=== PATIENT | female | born 2000 ===

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

== ENCOUNTER 2018-04-13 23:04 | Emergency (ER) | payer MEDICAID ==
[2018-04-13 23:31] VITALS: BP 100/66
--- NOTE | 2018-04-14 00:05 | C.PDOC ---
History Of Present Illness 18 year old female presents to the ER with a complaint of a fever, nonproductive cough, sore throat, and chest wall pain for the past 4 days. She has been taking motrin for fever with relief but fever recurs, last dose of motrin was [employer]. Denies SOB, sick contact, or recent travel. Time Seen by Provider: 04/13/18 23:34 Chief Complaint (Nursing): Fever History Per: Patient History/Exam Limitations: no limitations Onset/Duration Of Symptoms: Days Current Symptoms Are (Timing): Still Present Location Of Pain: Throat Associated Symptoms: Fever, Sore Throat, Cough, Other (Chest wall pain). denies: Sputum Ear Symptoms: Bilateral: None Recent travel outside of the [place]: No Past Medical History Reviewed: Historical Data, Nursing Documentation, Vital Signs Vital Signs: Last Vital Signs Temp 101.5 F H 04/13/18 23:27 Pulse 95 H 04/13/18 23:27 Resp 20 04/13/18 23:27 BP 100/66 04/13/18 23:27 Pulse Ox 97 04/13/18 23:27 Family History: States: Unknown Family Hx - Social History Hx Alcohol Use: No Hx Substance Use: No - Immunization History Hx Tetanus Toxoid Vaccination: No Hx Influenza Vaccination: No Hx Pneumococcal Vaccination: No Review Of Systems Constitutional: Positive for: Fever ENT: Positive for: Throat Pain Respiratory: Positive for: Cough. Negative for: Sputum Genitourinary: Negative for: Dysuria, Hematuria Musculoskeletal: Positive for: Other (Chest wall pain) Physical Exam - Physical Exam Appears: Non-toxic Skin: Normal Color, Warm, Dry Head: Atraumatic, Normacephalic Eye(s): bilateral: Normal Inspection Ear(s): Bilateral: Normal Nose: Normal Oral Mucosa: Moist Throat: Normal, No Erythema, No Exudate Neck: Normal, Supple Chest: Symmetrical, No Tenderness Cardiovascular: Rhythm Regular Respiratory: Normal Breath Sounds, No Rales, No Rhonchi, No Wheezing Gastrointestinal/Abdominal: Soft, No Tenderness Back: No CVA Tenderness Neurological/Psych: Oriented x3, Normal Speech ED Course And Treatment O2 Sat by Pulse Oximetry: 97 (Room air) Pulse Ox Interpretation: Normal - Radiology CXR: Interpreted by Me, Viewed By Me CXR Interpretation: Yes: No Acute Disease. No: Infiltrates Medical Decision Making Medical Decision Making: CXR ordered, results were negative. Tessalon and tylenol administered. Patient is resting comfortably in the ER in no acute distress, afebrile, vitals are stable, will discharge home with Rx and instructions to follow up with PMD or return if symptoms worsen. Disposition Counseled Patient/Family Regarding: Diagnosis, Need For Followup, Rx Given - Disposition Disposition: HOME/ ROUTINE Disposition Time: 00:23 Condition: GOOD Additional Instructions: You have viral upper respiratory infection. Take Tylenol or Motrin alternating every 4-6 hours for Fever 100.4F or higher. Rest and drink plenty of fluids. May use cool mist humidifier or vaporizer in room. Try taking over the counter antihistamine (Claritin, Nicole, Zyrtec), Decongestant or Cough medicine (Mucinex) as needed every 6-8 hours. Follow up with your primary medical doctor or clinic in 1 week for further evaluation. Tiene eusebia infeccin viral de las vas respiratorias superiores. [place] Tylenol o Motrin alternando cada 4-6 horas para Fever 100.4F o superior. Descansa y nadrew muchos lquidos. Puede usar humidificador de vapor fro o vaporizador en la habitacin. Trate de nomi el medicamento antihistamnico (Claritin, Nicole, Zyrtec), descongestivo o medicina para la tos (Mucinex) segn sea necesario cada 6-8 horas. Wolfgang un seguimiento con boyd mdico de cabecera o clnica en 1 semana para eusebia evaluacin adicional. Prescriptions: Guaifenesin/Dextromethorphan [Delsym Cough+Chest Cngst Dm Lq] 10 ml PO Q8 #4 oz Instructions: Upper Respiratory Infection (ED) Forms: [employer] (Albanian) Print Language: MALIAN - POA Present On Arrival: None - Clinical Impression Clinical Impression: Upper respiratory infection - PA / ENVIRONMENTAL SCIENCE PROFESSOR / Resident Statement MD/DO has reviewed & agrees with the documentation as recorded. - Scribe Statement The provider has reviewed the documentation as recorded by the Scribe Rolan Woodson All medical record entries made by the Scribe were at my direction and personally dictated by me. I have reviewed the chart and agree that the record accurately reflects my personal performance of the history, physical exam, medical decision making, and the department course for this patient. I have also personally directed, reviewed, and agree with the discharge instructions and disposition.
[2018-04-14 00:35] VITALS: PULSE 89; RESP 16; TEMP 98.1; O2SAT 99
--- NOTE | 2018-04-14 17:54 | RAD ---
Date of service: 04/14/2018 HISTORY: cough, fever COMPARISON: No prior. TECHNIQUE: Chest PA and lateral FINDINGS: LUNGS: Right middle lobe consolidation. Likely pneumonia. PLEURA: No significant pleural effusion identified. No pneumothorax apparent. CARDIOVASCULAR: No aortic atherosclerotic calcification present. Normal cardiac size. No pulmonary vascular congestion. OSSEOUS STRUCTURES: No significant abnormalities. VISUALIZED UPPER ABDOMEN: Normal. OTHER FINDINGS: None. IMPRESSION: Right middle lobe consolidation, likely pneumonia.
== END 2018-04-14 00:34 | disposition home or self-care (01) ==
LOC: C.ER 23:04
DX: J06.9 Acute upper respiratory infection, unspecified (principal)

== ENCOUNTER 2018-04-17 16:53 | Inpatient (IN) | payer MEDICAID ==
[2018-04-17] MEDS ORDERED: Albuterol-Ipratrop 3 mg / 0.5 (3 ml) UD INH STA ×2 (17:37→18:20)
[2018-04-17] MEDS ORDERED: Albuterol-Ipratrop 3 mg / 0.5 (3 ml) UD ONE ×2 (17:50→18:27)
--- NOTE | 2018-04-17 17:57 | RAD ---
HISTORY: cough, RML Pna noted 04/13 COMPARISON: Chest x-ray performed 04/14/18 TECHNIQUE: Chest PA and lateral FINDINGS: LUNGS: Right middle lobe consolidation consistent with pneumonia. Please note that chest x-ray has limited sensitivity for the detection of pulmonary masses. PLEURA: No significant pleural effusion identified. No definite pneumothorax . CARDIOVASCULAR: The cardiomediastinal silhouette appears within normal limits of size. No atherosclerotic calcification present. OSSEOUS STRUCTURES: No acute osseous abnormality identified. VISUALIZED UPPER ABDOMEN: Unremarkable. OTHER FINDINGS: None. IMPRESSION: Right middle lobe consolidation consistent with pneumonia; no significant interval change since 04/14/18.
[2018-04-17] MEDS ORDERED: cefTRIAXone IV 1 gm in Dextros 50 ML IV ONE (18:08)
[2018-04-17] MEDS ORDERED: Sodium Chloride 0.9% 1,000 ML IV ONE (18:09)
[2018-04-17 18:16] LABS: BASO % 0.2 % (0.0-2.0); EOS # 0.3 K/uL (0.0-0.7); HEMOGLOBIN 12.9 g/dL (11.0-16.0); LYMPH # 2.6 K/uL (1.0-4.3); LYMPH % 24.6 % (20.0-40.0); MEAN PLATELET VOLUME 7.8 fL (7.2-11.7); MONO # 0.9 K/uL (0.0-0.8); MONO % 8.1 % (0.0-10.0); NEUT # 6.9 K/uL (1.8-7.0); NEUT % 64.1 % (50.0-75.0); NRBC % 0.1 % (0.0-2.0); RBC 4.32 Mil/uL (3.80-5.20); RED CELL DISTRIBUTION WIDTH 13.1 % (11.5-14.5); WHITE BLOOD COUNT 10.7 K/uL (4.8-10.8)
[2018-04-17] MEDS ORDERED: cefTRIAXone 1 gm 1 GM/100 ML BAG IVPB ONE (18:17)
[2018-04-17 18:18] LABS: MEAN CELL VOLUME 88.1 fL (81.0-99.0)
[2018-04-17] MEDS ORDERED: Sodium Chloride 0.9% 0 ML ONE (18:19)
[2018-04-17 18:27] LABS: ALB/GLOB RATIO 1.1 (1.0-2.1); ALBUMIN 3.8 g/dL (3.5-5.0); ALT/SGPT 49 U/L (9-52); AST/SGOT 51 U/L (14-36); BLOOD UREA NITROGEN 7 mg/dL (7-17); CALCIUM 8.4 mg/dl (8.6-10.4); GFR NON-AFRICAN AMERICAN > 60
--- NOTE | 2018-04-17 18:30 | C.PDOC ---
History Of Present Illness 18 year old female presents to the ED for evaluation of persistent cough with subjective fevers for 3-4 days. Patient reports she is not able to catch her breath, was seen in the ED 04/15, treated for similar symptoms and prescribed an antibiotic. Admits to starting the antibiotics today. Denies having a nebulizer at home. Denies sick contact, decrease in PO intake, nausea, vomiting, chills, abdominal pain, diarrhea, and any other associated symptoms. Time Seen by Provider: 04/17/18 17:31 Chief Complaint (Nursing): Cough, Cold, Congestion History Per: Patient History/Exam Limitations: no limitations Onset/Duration Of Symptoms: Days Current Symptoms Are (Timing): Still Present Past Medical History Reviewed: Historical Data, Nursing Documentation, Vital Signs Vital Signs: Last Vital Signs Temp 100.6 F H 04/17/18 17:21 Pulse 85 04/17/18 17:21 Resp 20 04/17/18 17:21 BP 101/67 04/17/18 17:21 Pulse Ox 99 04/17/18 17:21 Family History: States: Unknown Family Hx - Social History Hx Alcohol Use: No Hx Substance Use: No - Immunization History Hx Tetanus Toxoid Vaccination: No Hx Influenza Vaccination: No Hx Pneumococcal Vaccination: No Review Of Systems Except As Marked, All Systems Reviewed And Found Negative. Constitutional: Positive for: Fever (subjective.). Negative for: Chills Respiratory: Positive for: Cough, Shortness of Breath Gastrointestinal: Negative for: Nausea, Vomiting, Abdominal Pain, Diarrhea Physical Exam - Physical Exam Appears: Non-toxic, Other (mild distress.) Skin: Normal Color, Warm, Dry Head: Atraumatic, Normacephalic Eye(s): bilateral: PERRL Ear(s): Bilateral: Normal Nose: Normal, No Discharge Oral Mucosa: Moist Throat: Normal, No Erythema, No Exudate Neck: Normal ROM, Supple Chest: Symmetrical, No Deformity Cardiovascular: Rhythm Regular, No Murmur Respiratory: Rales (increased rales and egophony on the right upper/lower lung area.) ED Course And Treatment - Laboratory Results Result Diagrams: 04/17/18 18:01 04/17/18 18:01 Lab Interpretation: Normal (flu neg) O2 Sat by Pulse Oximetry: 99 (RA) Pulse Ox Interpretation: Normal - Radiology CXR: Interpreted by Me CXR Interpretation: Yes: Other (+ RML and new RLL PNA evolved c/w 04/15/18) Reevaluation Time: 18:31 Reassessment Condition: Improved - Physician Consult Information Outcome Of Conversation: 1814: d/w Dr. Pooja Hwang, Medicine, ok to admit. Medical Decision Making Medical Decision Making: Plan: -Blood sent. -CXR. Duoneb. -Pepcid. -Tamifle cap. -Zithromax. -Blood culture. -Influenza A B. Progress/Update: CXR shows right middle lobe infiltrates RML PNA d/x 04/15 04/16 call back 04/17 w dx RML PNA and Rx Azithromycin called in 04/17: pt took first dose Azithro 500 PO ED eval with evolving RML and RLL PNA without leukocytosis, suspect influenza vs viral pna as no WBC genenerated with worstening PNA empiric coverage w Rocephin/Azithro/Tamiflu Resp Isolation prednisone/Nebs Disposition Doctor Will See Patient In The: Hospital Counseled Patient/Family Regarding: Studies Performed, Diagnosis - Disposition Disposition: HOSPITALIZED Disposition Time: 18:35 Condition: GOOD - Clinical Impression Clinical Impression: Pneumonia - Scribe Statement The provider has reviewed the documentation as recorded by the Scribe (Alessandra Galeano) Provider Attestation: All medical record entries made by the Scribe were at my direction and p ersonally dictated by me. I have reviewed the chart and agree that the record accurately reflects my personal performance of the history, physical exam, medical decision making, and the department course for this patient. I have also personally directed, reviewed, and agree with the discharge instructions and disposition.
[2018-04-17] MEDS ORDERED: MethylPREDNISolone 40 mg Vial ONE (22:14)
[2018-04-17] MEDS: MethylPREDNISolone 40 mg Vial IVP SCH (22:22)
[2018-04-18] MEDS ORDERED: Albuterol-Ipratrop 3 mg / 0.5 (3 ml) UD ONE ×2 (02:50→09:08)
[2018-04-18] MEDS: Albuterol-Ipratrop 3 mg / 0.5 (3 ml) UD INH SCH ×2 (03:17→09:19)
[2018-04-18] MEDS ORDERED: MethylPREDNISolone 40 mg Vial ONE (05:37)
[2018-04-18] MEDS: MethylPREDNISolone 40 mg Vial IVP SCH ×2 (05:48→22:12)
[2018-04-18] MEDS: cefTRIAXone IV 1 gm in Dextros 50 ML IVPB SCH (10:00)
[2018-04-18] MEDS: Azithromycin 500 MG in Sodium Chloride 0.9% 250 ML IVPB SCH (10:30)
--- NOTE | 2018-04-18 10:43 | CP.PCM.CON ---
History of Present Illness - History of Present Illness History of Present Illness: CHART REVIEWED, PT SEEN AND EXAMINED 18 YO HISP FEMALE WITH NO SIG PMH ADM WITH INCREASED MOD-SEVERE COUGH X 1 WK, NO SPUTUM. +FEVER +CHILLS., MILD SOB., NO HX ASTHMA. NO HX PNA. +MOTHER SICK AT HOME WITH FEVER AND COUGH ALSO 2 WKS AGO, NOW BETTER. PT SEEN IN ER LAST WK., RX PO AB WITH NO RELIEF. Review of Systems - Constitutional Constitutional: Fever, Weakness - EENT Eyes: absent: Change in Vision Nose/Mouth/Throat: absent: Nasal Congestion - Cardiovascular Cardiovascular: absent: Chest Pain - Respiratory Respiratory: Cough, Dyspnea. absent: Wheezing, Excessive Mucous Production - Gastrointestinal Gastrointestinal: Diarrhea, Nausea, Vomiting - Genitourinary Genitourinary: absent: Difficulty Urinating - Reproductive: Female Additional comments: LMP; LAST WK. - Musculoskeletal Musculoskeletal: absent: Myalgias - Integumentary Integumentary: absent: Swelling - Neurological Neurological: absent: Confusion, Focal Weakness - Psychiatric Psychiatric: absent: Anxiety - Endocrine Endocrine: absent: Change in Body Appearance - Hematologic/Lymphatic Hematologic: absent: Easy Bleeding Past Patient History - Past Medical History & Family History Past Medical History?: No Past Family History: Reviewed and not pertinent - Past Social History Smoking Status: Never Smoked Chewing Tobacco Use: No Cigar Use: No Alcohol: None Drugs: Denies - CARDIAC Hx Cardiac Disorders: No - PULMONARY Hx Respiratory Disorders: No - NEUROLOGICAL Hx Neurological Disorder: No - HEENT Hx HEENT Problems: No - RENAL Hx Chronic Kidney Disease: No - ENDOCRINE/METABOLIC Hx Endocrine Disorders: No - HEMATOLOGICAL/ONCOLOGICAL Hx Blood Disorders: No - INTEGUMENTARY Hx Dermatological Problems: No - MUSCULOSKELETAL/RHEUMATOLOGICAL Hx Musculoskeletal Disorders: No - GASTROINTESTINAL Hx Gastrointestinal Disorders: No - GENITOURINARY/GYNECOLOGICAL Hx Genitourinary Disorders: No - PSYCHIATRIC Hx Psychophysiologic Disorder: No Hx Substance Use: No - SURGICAL HISTORY Hx Surgeries: No - ANESTHESIA Hx Anesthesia: No Meds Allergies/Adverse Reactions: Allergies Allergy/AdvReac Type Severity Reaction Status Date / Time No Known Allergies Allergy Verified 04/17/18 17:24 - Medications Medications: Current Medications Albuterol/Ipratropium (Duoneb 3 Mg/0.5 Mg (3 Ml) Ud) 3 ml INH RQ6 BRIAN Last Admin: 04/18/18 09:19 Dose: 3 ml Ceftriaxone Sodium (Rocephin Iv 1 Gm Duplex) 50 mls @ 100 mls/hr IVPB DAILY BRIAN; Protocol Last Admin: 04/18/18 10:00 Dose: 100 mls/hr Azithromycin 500 mg/ Sodium (Chloride) 250 mls @ 250 mls/hr IVPB DAILY BRIAN; Protocol Methylprednisolone (Solu-Medrol) 40 mg IVP Q8 BRIAN Last Admin: 04/18/18 05:48 Dose: 40 mg Oseltamivir Phosphate (Tamiflu Cap) 75 mg PO BID BRIAN; Protocol Stop: 04/22/18 20:23 Last Admin: 04/18/18 10:17 Dose: 75 mg Physical Exam - Constitutional Appears: No Acute Distress - Head Exam Head Exam: ATRAUMATIC, NORMOCEPHALIC - Eye Exam Eye Exam: EOMI, Normal appearance - ENT Exam ENT Exam: Mucous Membranes Moist - Neck Exam Neck exam: Positive for: Normal Inspection - Respiratory Exam Respiratory Exam: Rhonchi. absent: Wheezes, Respiratory Distress - Cardiovascular Exam Cardiovascular Exam: RRR, +S1, +S2 - GI/Abdominal Exam GI & Abdominal Exam: Soft. absent: Tenderness - Rectal Exam Rectal Exam: Deferred - Extremities Exam Extremities exam: Negative for: calf tenderness, pedal edema - Back Exam Back exam: absent: CVA tenderness (L), CVA tenderness (R) - Neurological Exam Neurological exam: Alert, CN II-XII Intact, Oriented x3 - Psychiatric Exam Psychiatric exam: Normal Mood Results - Vital Signs Recent Vital Signs: Last Vital Signs Temp 97.9 F 04/18/18 06:54 Pulse 76 04/18/18 06:54 Resp 20 04/18/18 06:54 BP 118/66 04/18/18 06:54 Pulse Ox 98 04/18/18 06:54 - Labs Result Diagrams: 04/17/18 18:01 04/17/18 18:01 Labs: Laboratory Results - last 24 hr 04/17/18 04/17/18 04/17/18 18:01 18:01 18:01 WBC 10.7 RBC 4.32 Hgb 12.9 Hct 38.0 MCV 88.1 D MCH 30.0 MCHC 34.0 RDW 13.1 Plt Count 309 MPV 7.8 Neut % (Auto) 64.1 Lymph % (Auto) 24.6 [place] % (Auto) 8.1 Eos % (Auto) 3.0 Baso % (Auto) 0.2 Neut # (Auto) 6.9 Lymph # (Auto) 2.6 [place] # (Auto) 0.9 H Eos # (Auto) 0.3 Baso # (Auto) 0.0 Sodium 136 Potassium 3.9 Chloride 100 Carbon Dioxide 28 Anion Gap 12 BUN 7 Creatinine 0.6 L Est GFR ( Amer) > 60 Est GFR (Non-Af Amer) > 60 Random Glucose 109 H Calcium 8.4 L Total Bilirubin 0.4 AST 51 H D ALT 49 Alkaline Phosphatase 39 Total Protein 7.2 Albumin 3.8 Globulin 3.4 Albumin/Globulin Ratio 1.1 Influenza Typ A,B (EIA) Negative for flu a/b Assessment & Plan (1) Pneumonia Status: Acute - Assessment and Plan (Free Text) Assessment: 18 YO FEMALE WITH NO SIG PMH ADM WITH +RML PNA ON CXR., CXR REVIEWED. CONT EMPIRIC AB PENDING CULT. R/O FLU. FOR ID EVAL. CONT PULM TOILET,, NEB BD., MONITOR O2 SAT. DVT PROPHYLAXIS . DISCUSSED WITH STAFF AT LENGTH.
--- NOTE | 2018-04-18 11:54 | CP.PCM.CON ---
History of Present Illness - History of Present Illness History of Present Illness: HPI: 18 year old female presents to the ED for evaluation of persistent cough with subjective fevers for 3-4 days. Patient reports she is not able to catch her breath, was seen in the ED 04/15, treated for similar symptoms and prescribed an antibiotic. Admits to starting the antibiotics today. Denies having a nebulizer at home. DENIES decrease in PO intake, nausea, vomiting, chills, abdominal pain, diarrhea, and any other associated symptoms. C/O DRY COUGH.DENIES SORETHROAT. DENIES HEADACHE/OR SINUS PROBLEMS. DENIES ANY RECENT TRAVEL.STATES HER MOTHER WAS RECENTLY WITH [employer] AND PRESENTLY DOING BETTER. DENIES EXPOSURE TO PETS. CXR ON ADMISSION SHOWS [facility] PNEUMONIA. PT STARTED ON IV CEFOTRIAXONE/ZITHROMAX/AND TAMIFLU NOTED. iNITIAL RAPID INFLUENZA ANTIGEN REPORTED NEGATIVE. INFECTIOUS DISEASE CONSULTATION REQUESTED BY PMD FOR RIGHT LOWER LOBE PNEUMONIA AND DRY COUGH. PMH: -ASTHMA. Family History: States: Unknown Family Hx - Social History Hx Alcohol Use: No Hx Substance Use: No - Immunization History Hx Tetanus Toxoid Vaccination: No Hx Influenza Vaccination: No Hx Pneumococcal Vaccination: No ALLERGY: NKDA Review of Systems - Constitutional Constitutional: Chills, Fever. absent: Night Sweats - EENT Eyes: absent: Change in Vision Ears: absent: Ear Discharge, Ear Pain Nose/Mouth/Throat: absent: Post Nasal Drip, Hoarsness, Mouth Lesions - Cardiovascular Cardiovascular: absent: Chest Pain, Leg Edema - Respiratory Respiratory: Cough (DRY) - Gastrointestinal Gastrointestinal: absent: Abdominal Pain, Change in Bowel Habits, Diarrhea, V omiting - Genitourinary Genitourinary: absent: Dysuria - Reproductive: Female Reproductive:Female: Normal Menses - Menstruation Menstruation: Normal Menses - Neurological Neurological: absent: Headaches, Weakness - Hematologic/Lymphatic Hematologic: As Per HPI. absent: Easy Bruising, Lymphadenopathy Past Patient History - Past Medical History & Family History Past Medical History?: No Past Family History: Reviewed and not pertinent - Past Social History Smoking Status: Never Smoked Chewing Tobacco Use: No Cigar Use: No Alcohol: None Drugs: Denies - CARDIAC Hx Cardiac Disorders: No - PULMONARY Hx Respiratory Disorders: No - NEUROLOGICAL Hx Neurological Disorder: No - HEENT Hx HEENT Problems: No - RENAL Hx Chronic Kidney Disease: No - ENDOCRINE/METABOLIC Hx Endocrine Disorders: No - HEMATOLOGICAL/ONCOLOGICAL Hx Blood Disorders: No - INTEGUMENTARY Hx Dermatological Problems: No - MUSCULOSKELETAL/RHEUMATOLOGICAL Hx Musculoskeletal Disorders: No - GASTROINTESTINAL Hx Gastrointestinal Disorders: No - GENITOURINARY/GYNECOLOGICAL Hx Genitourinary Disorders: No - PSYCHIATRIC Hx Psychophysiologic Disorder: No Hx Substance Use: No - SURGICAL HISTORY Hx Surgeries: No - ANESTHESIA Hx Anesthesia: No Meds Allergies/Adverse Reactions: Allergies Allergy/AdvReac Type Severity Reaction Status Date / Time shellfish Allergy NAUSEA Uncoded 04/18/18 23:24 - Medications Medications: Current Medications Albuterol/Ipratropium (Duoneb 3 Mg/0.5 Mg (3 Ml) Ud) 3 ml INH RQ6 BRIAN Last Admin: 04/18/18 09:19 Dose: 3 ml Ceftriaxone Sodium (Rocephin Iv 1 Gm Duplex) 50 mls @ 100 mls/hr IVPB DAILY BRIAN; Protocol Last Admin: 04/18/18 10:00 Dose: 100 mls/hr Azithromycin 500 mg/ Sodium (Chloride) 250 mls @ 250 mls/hr IVPB DAILY BRIAN; Protocol Last Admin: 04/18/18 10:30 Dose: 250 mls/hr Methylprednisolone (Solu-Medrol) 40 mg IVP Q12 BRIAN Oseltamivir Phosphate (Tamiflu Cap) 75 mg PO BID BRIAN; Protocol Stop: 04/22/18 20:23 Last Admin: 04/18/18 10:17 Dose: 75 mg Physical Exam - Constitutional Appears: No Acute Distress - Head Exam Head Exam: NORMAL INSPECTION - Eye Exam Eye Exam: EOMI, PERRL - ENT Exam ENT Exam: Normal Oropharynx - Neck Exam Neck exam: Positive for: Normal Inspection - Respiratory Exam Respiratory Exam: Rhonchi (RT SIDE), Wheezes - Cardiovascular Exam Cardiovascular Exam: REGULAR RHYTHM, +S1, +S2 - GI/Abdominal Exam GI & Abdominal Exam: Soft. absent: Organomegaly, Tenderness - Extremities Exam Extremities exam: Positive for: normal capillary refill, pedal pulses present. Negative for: calf tenderness, pedal edema - Neurological Exam Neurological exam: Alert, CN II-XII Intact, Normal Gait, Oriented x3, Reflexes Normal - Psychiatric Exam Psychiatric exam: Normal Mood - Skin Skin Exam: Normal Color, Warm Results - Vital Signs Recent Vital Signs: Last Vital Signs Temp 97.9 F 04/18/18 06:54 Pulse 76 04/18/18 06:54 Resp 20 04/18/18 06:54 BP 118/66 04/18/18 06:54 Pulse Ox 98 04/18/18 06:54 - Labs Result Diagrams: 04/17/18 18:01 04/17/18 18:01 Labs: Laboratory Results - last 24 hr 04/17/18 04/17/18 04/17/18 18:01 18:01 18:01 WBC 10.7 RBC 4.32 Hgb 12.9 Hct 38.0 MCV 88.1 D MCH 30.0 MCHC 34.0 RDW 13.1 Plt Count 309 MPV 7.8 Neut % (Auto) 64.1 Lymph % (Auto) 24.6 Adams % (Auto) 8.1 Eos % (Auto) 3.0 Baso % (Auto) 0.2 Neut # (Auto) 6.9 Lymph # (Auto) 2.6 Adams # (Auto) 0.9 H Eos # (Auto) 0.3 Baso # (Auto) 0.0 Sodium 136 Potassium 3.9 Chloride 100 Carbon Dioxide 28 Anion Gap 12 BUN 7 Creatinine 0.6 L Est GFR ( Amer) > 60 Est GFR (Non-Af Amer) > 60 Random Glucose 109 H Calcium 8.4 L Total Bilirubin 0.4 AST 51 H D ALT 49 Alkaline Phosphatase 39 Total Protein 7.2 Albumin 3.8 Globulin 3.4 Albumin/Globulin Ratio 1.1 Influenza Typ A,B (EIA) Negative for flu a/b - Imaging and Cardiology Chest x-ray Status: Report reviewed by me (RML INFILTRATE.) Assessment & Plan (1) CAP (community acquired pneumonia) Assessment and Plan: CXR; [facility] PNEUMONIA. nO CHANGE FROM PREVIOUS ONE. CONTINUE IV ABX ORDERED. IV ROCEPHIN 1 G EVERY 24 HOURLY. 04/17/18 IV zITHROMAX 500 MG EVERY 24 HOURLY 04/17/18 tAMIFLU 75 MG BY MOUTH TWICE A DAY FOR 5 DAYS. 04/17/18 DROPLET PRECAUTIONS FOR NOW. ( POSSIBLE INFLUENZA/ MYCOPLASMA ) AWAIT SEROLOGY AND ATYPICAL TITERS.-ORDERED. Status: Acute (2) Dyspnea Assessment and Plan: PATIENT SEEN BY PULMONARY DR FRANCO PULMONARY TOILET. PATIENT STARTED ON STEROIDS 40 MG EVERY 8 HOURLY PER PULMONARY. Status: Acute (3) Fever and chills Assessment and Plan: FOLLOW-UP BLOOD CULTURES. Status: Acute
[2018-04-18 16:01] LABS: LEGIONELLA AG URINE NEGATIVE (NEGATIVE)
[2018-04-18 20:27] LABS: MYCOPLASMA PNEUMONIAE IGM POSITIVE (NEGATIVE)
--- NOTE | 2018-04-18 22:12 | CP.PCM.HP ---
Past Patient History - Past Medical History & Family History Past Medical History?: No - Past Social History Smoking Status: Never Smoked - CARDIAC Hx Cardiac Disorders: No - PULMONARY Hx Respiratory Disorders: No - NEUROLOGICAL Hx Neurological Disorder: No - HEENT Hx HEENT Problems: No - RENAL Hx Chronic Kidney Disease: No - ENDOCRINE/METABOLIC Hx Endocrine Disorders: No - HEMATOLOGICAL/ONCOLOGICAL Hx Blood Disorders: No - INTEGUMENTARY Hx Dermatological Problems: No - MUSCULOSKELETAL/RHEUMATOLOGICAL Hx Musculoskeletal Disorders: No Hx Falls: No - GASTROINTESTINAL Hx Gastrointestinal Disorders: No - GENITOURINARY/GYNECOLOGICAL Hx Genitourinary Disorders: No - PSYCHIATRIC Hx Psychophysiologic Disorder: No Hx Substance Use: No - SURGICAL HISTORY Hx Surgeries: No - ANESTHESIA Hx Anesthesia: No Meds Allergies/Adverse Reactions: Allergies Allergy/AdvReac Type Severity Reaction Status Date / Time No Known Allergies Allergy Verified 04/17/18 17:24 Physical Exam - Constitutional Appears: Well - Head Exam Head Exam: ATRAUMATIC, NORMAL INSPECTION, NORMOCEPHALIC - Eye Exam Eye Exam: EOMI, Normal appearance, PERRL Pupil Exam: NORMAL ACCOMODATION, PERRL - ENT Exam ENT Exam: Mucous Membranes Moist, Normal Exam - Neck Exam Neck exam: Positive for: Normal Inspection - Respiratory Exam Respiratory Exam: Decreased Breath Sounds - Cardiovascular Exam Cardiovascular Exam: REGULAR RHYTHM, +S1, +S2 - GI/Abdominal Exam GI & Abdominal Exam: Diminished Bowel Sounds, Soft - Rectal Exam Rectal Exam: Deferred Results - Vital Signs Recent Vital Signs: Last Vital Signs Temp 98.2 F 04/18/18 13:42 Pulse 71 04/18/18 13:42 Resp 12 04/18/18 20:03 BP 104/64 04/18/18 13:42 Pulse Ox 98 04/18/18 13:42 - Labs Result Diagrams: 04/17/18 18:01 04/17/18 18:01 Labs: Laboratory Results - last 24 hr 04/18/18 04/18/18 04/18/18 12:57 12:57 12:57 C-React Prot High Sens > 15.00 H HIV 1&2 Antibody Screen Infectious Meigs Assay Negative Ur L.pneumophila Ag Negative Mycoplasma pneumon IgM Positive H 04/18/18 12:57 C-React Prot High Sens HIV 1&2 Antibody Screen Negative Infectious Meigs Assay Ur L.pneumophila Ag Mycoplasma pneumon IgM
[2018-04-19] MEDS: Albuterol-Ipratrop 3 mg / 0.5 (3 ml) UD INH SCH ×4 (01:25→19:57)
[2018-04-19] MEDS: MethylPREDNISolone 40 mg Vial IVP SCH (09:39)
[2018-04-19] MEDS: Enoxaparin 40 mg Syringe SC SCH (09:43)
[2018-04-19] MEDS: cefTRIAXone IV 1 gm in Dextros 50 ML IVPB SCH (10:01)
[2018-04-19] MEDS: Azithromycin 500 MG in Sodium Chloride 0.9% 250 ML IVPB SCH (10:55)
--- NOTE | 2018-04-19 14:39 | CP.PCM.PN ---
Subjective - Date & Time of Evaluation Date of Evaluation: 04/19/18 Time of Evaluation: 14:39 Objective - Vital Signs/Intake and Output Vital Signs (last 24 hours): Temp Pulse Resp BP Pulse Ox 98.7 F 57 L 18 94/60 L 98 04/19/18 07:00 04/19/18 07:00 04/19/18 07:00 04/19/18 07:00 04/19/18 07:00 Intake and Output: 04/19/18 04/19/18 06:59 18:59 Intake Total 480 Balance 480 - Medications Medications: Current Medications Albuterol/Ipratropium (Duoneb 3 Mg/0.5 Mg (3 Ml) Ud) 3 ml INH RQ6 BRIAN Last Admin: 04/19/18 13:39 Dose: 3 ml Enoxaparin Sodium (Lovenox) 40 mg SC DAILY BRIAN Last Admin: 04/19/18 09:43 Dose: Not Given Ceftriaxone Sodium (Rocephin Iv 1 Gm Duplex) 50 mls @ 100 mls/hr IVPB DAILY BRIAN; Protocol Last Admin: 04/19/18 10:01 Dose: 100 mls/hr Azithromycin 500 mg/ Sodium (Chloride) 250 mls @ 250 mls/hr IVPB DAILY BRIAN; Protocol Last Admin: 04/19/18 10:55 Dose: 250 mls/hr Methylprednisolone (Solu-Medrol) 40 mg IVP Q12 BRIAN Last Admin: 04/19/18 09:39 Dose: 40 mg Oseltamivir Phosphate (Tamiflu Cap) 75 mg PO BID BRIAN; Protocol Stop: 04/22/18 20:23 Last Admin: 04/19/18 09:38 Dose: 75 mg - Labs Labs: 04/17/18 18:01 04/17/18 18:01 Assessment and Plan (1) CAP (community acquired pneumonia) Status: Acute (2) Dyspnea Status: Acute (3) Fever and chills Status: Acute
[2018-04-19 16:08] VITALS: RESP 20
--- NOTE | 2018-04-19 19:46 | CP.PCM.PN ---
Subjective - Date & Time of Evaluation Date of Evaluation: 04/19/18 Time of Evaluation: 19:43 - Subjective Subjective: PT ALERT, LESS COUGH, NO SPUTUM., NO SOB. ROS ; OTHERWISE NEG. Objective - Vital Signs/Intake and Output Vital Signs (last 24 hours): Temp Pulse Resp BP Pulse Ox 98.1 F 61 20 100/63 100 04/19/18 15:00 04/19/18 15:00 04/19/18 15:00 04/19/18 15:00 04/19/18 15:00 Intake and Output: 04/19/18 04/20/18 18:59 06:59 Intake Total 1260 Balance 1260 - Medications Medications: Current Medications Albuterol/Ipratropium (Duoneb 3 Mg/0.5 Mg (3 Ml) Ud) 3 ml INH RQ6 BRIAN Last Admin: 04/19/18 13:39 Dose: 3 ml Enoxaparin Sodium (Lovenox) 40 mg SC DAILY BRIAN Last Admin: 04/19/18 09:43 Dose: Not Given Ceftriaxone Sodium (Rocephin Iv 1 Gm Duplex) 50 mls @ 100 mls/hr IVPB DAILY BRIAN; Protocol Last Admin: 04/19/18 10:01 Dose: 100 mls/hr Azithromycin 500 mg/ Sodium (Chloride) 250 mls @ 250 mls/hr IVPB DAILY BRIAN; Protocol Last Admin: 04/19/18 10:55 Dose: 250 mls/hr Oseltamivir Phosphate (Tamiflu Cap) 75 mg PO BID BRIAN; Protocol Stop: 04/22/18 20:23 Last Admin: 04/19/18 18:33 Dose: 75 mg - Labs Labs: 04/17/18 18:01 04/17/18 18:01 - Constitutional Appears: No Acute Distress - Head Exam Head Exam: ATRAUMATIC, NORMOCEPHALIC - Eye Exam Eye Exam: EOMI, Normal appearance - ENT Exam ENT Exam: Mucous Membranes Moist - Neck Exam Neck Exam: Normal Inspection - Respiratory Exam Respiratory Exam: absent: Rhonchi, Respiratory Distress - Cardiovascular Exam Cardiovascular Exam: RRR, +S1, +S2 - GI/Abdominal Exam GI & Abdominal Exam: Soft. absent: Tenderness - Rectal Exam Rectal Exam: Deferred - Extremities Exam Extremities Exam: absent: Calf Tenderness, Pedal Edema - Back Exam Back Exam: absent: CVA tenderness (L), CVA tenderness (R) - Neurological Exam Neurological Exam: Alert, Awake, CN II-XII Intact, Oriented x3 - Psychiatric Exam Psychiatric exam: Normal Mood - Skin Skin Exam: absent: Rash Assessment and Plan (1) Pneumonia Status: Acute - Assessment and Plan (Free Text) Assessment: RESP STATUS IMPROVING., AFEBRILE ON AB., CONT PULM TOILET., MONITOR O2 SAT. CXR REVIEWED. RESP ISOLATION PER ID. DISCUSSED WITH STAFF.
--- NOTE | 2018-04-19 21:47 | CP.PCM.PN ---
Subjective - Date & Time of Evaluation Date of Evaluation: 04/19/18 Time of Evaluation: 10:50 - Subjective Subjective: clinically same Objective - Vital Signs/Intake and Output Vital Signs (last 24 hours): Temp Pulse Resp BP Pulse Ox 98.1 F 61 20 100/63 100 04/19/18 15:00 04/19/18 15:00 04/19/18 15:00 04/19/18 15:00 04/19/18 15:00 Intake and Output: 04/19/18 04/20/18 18:59 06:59 Intake Total 1260 Balance 1260 - Medications Medications: Current Medications Albuterol/Ipratropium (Duoneb 3 Mg/0.5 Mg (3 Ml) Ud) 3 ml INH RQ6 BRIAN Last Admin: 04/19/18 19:57 Dose: 3 ml Enoxaparin Sodium (Lovenox) 40 mg SC DAILY BRIAN Last Admin: 04/19/18 09:43 Dose: Not Given Ceftriaxone Sodium (Rocephin Iv 1 Gm Duplex) 50 mls @ 100 mls/hr IVPB DAILY BRIAN; Protocol Last Admin: 04/19/18 10:01 Dose: 100 mls/hr Azithromycin 500 mg/ Sodium (Chloride) 250 mls @ 250 mls/hr IVPB DAILY BRIAN; Protocol Last Admin: 04/19/18 10:55 Dose: 250 mls/hr Oseltamivir Phosphate (Tamiflu Cap) 75 mg PO BID BRIAN; Protocol Stop: 04/22/18 20:23 Last Admin: 04/19/18 18:33 Dose: 75 mg - Labs Labs: 04/17/18 18:01 04/17/18 18:01 - Constitutional Appears: Well - Head Exam Head Exam: ATRAUMATIC, NORMAL INSPECTION, NORMOCEPHALIC - Eye Exam Eye Exam: EOMI, Normal appearance, PERRL Pupil Exam: NORMAL ACCOMODATION, PERRL - ENT Exam ENT Exam: Mucous Membranes Moist, Normal Exam - Neck Exam Neck Exam: Full ROM, Normal Inspection. absent: Lymphadenopathy - Respiratory Exam Respiratory Exam: Decreased Breath Sounds - Cardiovascular Exam Cardiovascular Exam: REGULAR RHYTHM, +S1, +S2 - GI/Abdominal Exam GI & Abdominal Exam: Soft, Diminished Bowel Sounds - Rectal Exam Rectal Exam: Deferred
--- NOTE | 2018-04-19 21:57 | CP.PCM.PN ---
Subjective - Date & Time of Evaluation Date of Evaluation: 04/19/18 Time of Evaluation: 21:57 - Subjective Subjective: AFEBRILE, C/O OF DRY COUGH DENIES ANY EXPECTORATION. CLINICALLY IMPROVING. SEEN BY PULMONARY. LABS ; MYCOPLASMA IGM ANTIBODY +VE Objective - Vital Signs/Intake and Output Vital Signs (last 24 hours): Temp Pulse Resp BP Pulse Ox 98.1 F 61 20 100/63 100 04/19/18 15:00 04/19/18 15:00 04/19/18 15:00 04/19/18 15:00 04/19/18 15:00 Intake and Output: 04/19/18 04/20/18 18:59 06:59 Intake Total 1260 Balance 1260 - Medications Medications: Current Medications Albuterol/Ipratropium (Duoneb 3 Mg/0.5 Mg (3 Ml) Ud) 3 ml INH RQ6 BRIAN Last Admin: 04/19/18 19:57 Dose: 3 ml Enoxaparin Sodium (Lovenox) 40 mg SC DAILY BRIAN Last Admin: 04/19/18 09:43 Dose: Not Given Ceftriaxone Sodium (Rocephin Iv 1 Gm Duplex) 50 mls @ 100 mls/hr IVPB DAILY BRIAN; Protocol Last Admin: 04/19/18 10:01 Dose: 100 mls/hr Azithromycin 500 mg/ Sodium (Chloride) 250 mls @ 250 mls/hr IVPB DAILY BRIAN; Protocol Last Admin: 04/19/18 10:55 Dose: 250 mls/hr Oseltamivir Phosphate (Tamiflu Cap) 75 mg PO BID BRIAN; Protocol Stop: 04/22/18 20:23 Last Admin: 04/19/18 18:33 Dose: 75 mg - Labs Labs: 04/17/18 18:01 04/17/18 18:01 - Constitutional Appears: No Acute Distress - Head Exam Head Exam: NORMAL INSPECTION - Eye Exam Eye Exam: EOMI - ENT Exam ENT Exam: Normal Oropharynx - Neck Exam Neck Exam: Normal Inspection - Respiratory Exam Respiratory Exam: Rhonchi, NORMAL BREATHING PATTERN (RHONCHI RIGHT-SIDED.) - Cardiovascular Exam Cardiovascular Exam: REGULAR RHYTHM, +S1, +S2 - GI/Abdominal Exam GI & Abdominal Exam: Soft, Normal Bowel Sounds - Extremities Exam Extremities Exam: absent: Calf Tenderness, Pedal Edema - Neurological Exam Neurological Exam: Alert, Awake, CN II-XII Intact, Oriented x3, Reflexes Normal - Psychiatric Exam Psychiatric exam: Normal Mood - Skin Skin Exam: Normal Color, Warm Assessment and Plan (1) CAP (community acquired pneumonia) Assessment & Plan: mYCOPLASMA iGm POSITIVE PATIENT HAS CAP MYCOPLASMA PNEUMONIA.. CONTINUE PRESENT ANTIBIOTICS. PULMONARY TOILET. pATIENT ON DROPLET PRECAUTIONS FOR MYCOPLASMA PNEUMONIAE. Status: Acute (2) Dyspnea Assessment & Plan: improving Status: Acute (3) Fever and chills Assessment & Plan: blood cultures negative to date. MRSA screen negative. check CBC,BMP, LFTS CXR IN AM Status: Acute
[2018-04-20] MEDS: Albuterol-Ipratrop 3 mg / 0.5 (3 ml) UD INH SCH ×4 (01:14→19:30)
[2018-04-20 06:34] LABS: BASO % 0.1 % (0.0-2.0); HEMOGLOBIN 12.2 g/dL (11.0-16.0); LYMPH # 3.1 K/uL (1.0-4.3); LYMPH % 14.5 % (20.0-40.0); MEAN CORPUSCULAR HEMOGLOBIN 30.1 pg (27.0-31.0); MEAN CORPUSCULAR HGB CONC 33.4 g/dL (33.0-37.0); MONO # 1.3 K/uL (0.0-0.8); MONO % 6.1 % (0.0-10.0); NEUT % 79.3 % (50.0-75.0); RBC 4.06 Mil/uL (3.80-5.20); RED CELL DISTRIBUTION WIDTH 12.9 % (11.5-14.5); WHITE BLOOD COUNT 21.5 K/uL (4.8-10.8)
[2018-04-20 07:48] LABS: ALBUMIN 3.4 g/dL (3.5-5.0); ALT/SGPT 60 U/L (9-52); AST/SGOT 40 U/L (14-36); BILIRUBIN,DIRECT 0.2 mg/dL (0.0-0.4); BLOOD UREA NITROGEN 12 mg/dL (7-17); CALCIUM 8.8 mg/dl (8.6-10.4); GFR NON-AFRICAN AMERICAN > 60
--- NOTE | 2018-04-20 09:14 | RAD ---
Chest x-ray single frontal view HISTORY: Right middle lobe pneumonia. COMPARISON: 04/17/2018 FINDINGS: Persistent dense consolidation seen within the right mid to lower lung zone consistent with infiltrate. Post treatment interval follow-up is recommended to ensure resolution and exclude underlying lesion. Heart size within normal limits. Degenerative changes in the spine. Impression: Persistent dense consolidation seen within the right mid to lower lung zone consistent with infiltrate. Post treatment interval follow-up is recommended to ensure resolution and exclude underlying lesion.
[2018-04-20] MEDS: Enoxaparin 40 mg Syringe SC SCH (10:00)
[2018-04-20] MEDS: cefTRIAXone IV 1 gm in Dextros 50 ML IVPB SCH (11:49)
[2018-04-20] MEDS: Azithromycin 500 MG in Sodium Chloride 0.9% 250 ML IVPB SCH (12:57)
--- NOTE | 2018-04-20 15:22 | CP.PCM.PN ---
Subjective - Date & Time of Evaluation Date of Evaluation: 04/20/18 Time of Evaluation: 15:19 - Subjective Subjective: PT ALERT, LESS COUGH. NO SOB. ROS; OTHERWISE NEG. Objective - Vital Signs/Intake and Output Vital Signs (last 24 hours): Temp Pulse Resp BP Pulse Ox 97.9 F 69 20 128/81 98 04/20/18 07:00 04/20/18 07:00 04/20/18 07:00 04/20/18 07:00 04/20/18 07:00 Intake and Output: 04/20/18 04/20/18 06:59 18:59 Intake Total 480 Balance 480 - Medications Medications: Current Medications Albuterol/Ipratropium (Duoneb 3 Mg/0.5 Mg (3 Ml) Ud) 3 ml INH RQ6 BRIAN Last Admin: 04/20/18 15:09 Dose: 3 ml Enoxaparin Sodium (Lovenox) 40 mg SC DAILY BRIAN Last Admin: 04/20/18 10:00 Dose: Not Given Ceftriaxone Sodium (Rocephin Iv 1 Gm Duplex) 50 mls @ 100 mls/hr IVPB DAILY BRIAN ; Protocol Last Admin: 04/20/18 11:49 Dose: 100 mls/hr Azithromycin 500 mg/ Sodium (Chloride) 250 mls @ 250 mls/hr IVPB DAILY BRIAN; Protocol Last Admin: 04/20/18 12:57 Dose: 250 mls/hr Oseltamivir Phosphate (Tamiflu Cap) 75 mg PO BID BRIAN; Protocol Stop: 04/22/18 20:23 Last Admin: 04/20/18 10:53 Dose: 75 mg - Labs Labs: 04/20/18 06:23 04/20/18 06:24 - Constitutional Appears: No Acute Distress - Head Exam Head Exam: ATRAUMATIC, NORMOCEPHALIC - Eye Exam Eye Exam: EOMI, Normal appearance - ENT Exam ENT Exam: Mucous Membranes Moist - Respiratory Exam Respiratory Exam: absent: Accessory Muscle Use, Rhonchi, Wheezes, Respiratory Distress - Cardiovascular Exam Cardiovascular Exam: RRR, +S1, +S2 - GI/Abdominal Exam GI & Abdominal Exam: Soft. absent: Tenderness - Rectal Exam Rectal Exam: Deferred - Extremities Exam Extremities Exam: absent: Calf Tenderness, Pedal Edema - Back Exam Back Exam: absent: CVA tenderness (L), CVA tenderness (R) - Neurological Exam Neurological Exam: Alert, Awake, CN II-XII Intact, Oriented x3 - Psychiatric Exam Psychiatric exam: Normal Mood - Skin Skin Exam: absent: Rash Assessment and Plan (1) Pneumonia Status: Acute - Assessment and Plan (Free Text) Assessment: RESP STATUS COMFORTABLE AT REST. +MYCOPLASMA PNA NOTED., CONT AB PER ID. CONT PULM TOILET., ADEQ OXYGENATION., INCREASE OOB. DISCUSSED WITH STAFF AT LENGTH.
--- NOTE | 2018-04-20 20:18 | CP.PCM.PN ---
Subjective - Date & Time of Evaluation Date of Evaluation: 04/20/18 Time of Evaluation: 10:15 - Subjective Subjective: clinically same Objective - Vital Signs/Intake and Output Vital Signs (last 24 hours): Temp Pulse Resp BP Pulse Ox 98 F 71 20 101/64 97 04/20/18 16:20 04/20/18 16:20 04/20/18 16:20 04/20/18 16:20 04/20/18 16:20 - Medications Medications: Current Medications Albuterol/Ipratropium (Duoneb 3 Mg/0.5 Mg (3 Ml) Ud) 3 ml INH RQ6 BRIAN Last Admin: 04/20/18 19:30 Dose: 3 ml Enoxaparin Sodium (Lovenox) 40 mg SC DAILY BRIAN Last Admin: 04/20/18 10:00 Dose: Not Given Ceftriaxone Sodium (Rocephin Iv 1 Gm Duplex) 50 mls @ 100 mls/hr IVPB DAILY BRIAN; Protocol Last Admin: 04/20/18 11:49 Dose: 100 mls/hr Azithromycin 500 mg/ Sodium (Chloride) 250 mls @ 250 mls/hr IVPB DAILY BRIAN; Protocol Last Admin: 04/20/18 12:57 Dose: 250 mls/hr Oseltamivir Phosphate (Tamiflu Cap) 75 mg PO BID BRIAN; Protocol Stop: 04/22/18 20:23 Last Admin: 04/20/18 17:16 Dose: 75 mg - Labs Labs: 04/20/18 06:23 04/20/18 06:24 - Constitutional Appears: Well - Head Exam Head Exam: ATRAUMATIC, NORMAL INSPECTION, NORMOCEPHALIC - Eye Exam Eye Exam: EOMI, Normal appearance, PERRL Pupil Exam: NORMAL ACCOMODATION, PERRL - ENT Exam ENT Exam: Mucous Membranes Moist, Normal Exam - Neck Exam Neck Exam: Full ROM, Normal Inspection. absent: Lymphadenopathy - Respiratory Exam Respiratory Exam: Decreased Breath Sounds - Cardiovascular Exam Cardiovascular Exam: REGULAR RHYTHM, +S1, +S2 - GI/Abdominal Exam GI & Abdominal Exam: Soft, Diminished Bowel Sounds - Rectal Exam Rectal Exam: Deferred
--- NOTE | 2018-04-20 20:57 | CP.PCM.PN ---
Subjective - Date & Time of Evaluation Date of Evaluation: 04/20/18 Time of Evaluation: 20:54 - Subjective Subjective: AFEBRILE, C/O OF DRY COUGH DENIES ANY EXPECTORATION. CLINICALLY IMPROVING. SEEN BY PULMONARY. LABS ; MYCOPLASMA IGM ANTIBODY +V Objective - Vital Signs/Intake and Output Vital Signs (last 24 hours): Temp Pulse Resp BP Pulse Ox 98 F 71 20 101/64 97 04/20/18 16:20 04/20/18 16:20 04/20/18 16:20 04/20/18 16:20 04/20/18 16:20 - Medications Medications: Current Medications Albuterol/Ipratropium (Duoneb 3 Mg/0.5 Mg (3 Ml) Ud) 3 ml INH RQ6 BRIAN Last Admin: 04/20/18 19:30 Dose: 3 ml Enoxaparin Sodium (Lovenox) 40 mg SC DAILY BRIAN Last Admin: 04/20/18 10:00 Dose: Not Given Ceftriaxone Sodium (Rocephin Iv 1 Gm Duplex) 50 mls @ 100 mls/hr IVPB DAILY BRIAN; Protocol Last Admin: 04/20/18 11:49 Dose: 100 mls/hr Azithromycin 500 mg/ Sodium (Chloride) 250 mls @ 250 mls/hr IVPB DAILY BRIAN; Protocol Last Admin: 04/20/18 12:57 Dose: 250 mls/hr Oseltamivir Phosphate (Tamiflu Cap) 75 mg PO BID BRIAN; Protocol Stop: 04/22/18 20:23 Last Admin: 04/20/18 17:16 Dose: 75 mg - Labs Labs: 04/20/18 06:23 04/20/18 06:24 - Constitutional Appears: No Acute Distress - Head Exam Head Exam: NORMAL INSPECTION - Eye Exam Eye Exam: EOMI, PERRL - ENT Exam ENT Exam: Normal Oropharynx - Neck Exam Neck Exam: Normal Inspection - Respiratory Exam Respiratory Exam: Decreased Breath Sounds, NORMAL BREATHING PATTERN. absent: Respiratory Distress - Cardiovascular Exam Cardiovascular Exam: REGULAR RHYTHM, +S1, +S2 - GI/Abdominal Exam GI & Abdominal Exam: Soft, Normal Bowel Sounds. absent: Organomegaly - Extremities Exam Extremities Exam: Normal Capillary Refill. absent: Calf Tenderness, Pedal Edema - Psychiatric Exam Psychiatric exam: Normal Mood - Skin Skin Exam: Normal Color, Warm Assessment and Plan (1) CAP (community acquired pneumonia) Assessment & Plan: CONTINUE IV ABX. CXR DONE- PENDING REPORT Status: Acute (2) Dyspnea Assessment & Plan: IMPROVING. LESS COUGH. Status: Acute (3) Fever and chills Assessment & Plan: IMPROVED. Status: Acute
[2018-04-21] MEDS: Albuterol-Ipratrop 3 mg / 0.5 (3 ml) UD INH SCH ×4 (01:13→19:28)
[2018-04-21] MEDS: cefTRIAXone IV 1 gm in Dextros 50 ML IVPB SCH (09:55)
[2018-04-21] MEDS: Enoxaparin 40 mg Syringe SC SCH (10:01)
[2018-04-21] MEDS: Azithromycin 500 MG in Sodium Chloride 0.9% 250 ML IVPB SCH (10:58)
--- NOTE | 2018-04-21 11:05 | CP.PCM.PN ---
Subjective - Date & Time of Evaluation Date of Evaluation: 04/21/18 Time of Evaluation: 11:03 - Subjective Subjective: PT ALERT, LESS COUGH, NO SOB. ROS ; OTHERWISE NEG. Objective - Vital Signs/Intake and Output Vital Signs (last 24 hours): Temp Pulse Resp BP Pulse Ox 97.9 F 86 20 100/61 97 04/21/18 07:00 04/21/18 07:00 04/21/18 07:00 04/21/18 07:00 04/21/18 07:00 - Medications Medications: Current Medications Albuterol/Ipratropium (Duoneb 3 Mg/0.5 Mg (3 Ml) Ud) 3 ml INH RQ6 BRIAN Last Admin: 04/21/18 08:20 Dose: Not Given Enoxaparin Sodium (Lovenox) 40 mg SC DAILY BRIAN Last Admin: 04/21/18 10:01 Dose: Not Given Ceftriaxone Sodium (Rocephin Iv 1 Gm Duplex) 50 mls @ 100 mls/hr IVPB DAILY BRIAN; Protocol Last Admin: 04/21/18 09:55 Dose: 100 mls/hr Azithromycin 500 mg/ Sodium (Chloride) 250 mls @ 250 mls/hr IVPB DAILY BRIAN; Protocol Last Admin: 04/21/18 10:58 Dose: 250 mls/hr Oseltamivir Phosphate (Tamiflu Cap) 75 mg PO BID BRIAN; Protocol Stop: 04/22/18 20:23 Last Admin: 04/21/18 09:55 Dose: 75 mg - Labs Labs: 04/20/18 06:23 04/20/18 06:24 - Constitutional Appears: Non-toxic, No Acute Distress - Head Exam Head Exam: ATRAUMATIC, NORMOCEPHALIC - Eye Exam Eye Exam: EOMI, Normal appearance - ENT Exam ENT Exam: Mucous Membranes Moist - Neck Exam Neck Exam: Normal Inspection - Respiratory Exam Respiratory Exam: absent: Wheezes, Respiratory Distress - Cardiovascular Exam Cardiovascular Exam: RRR, +S1, +S2 - GI/Abdominal Exam GI & Abdominal Exam: Soft. absent: Tenderness - Rectal Exam Rectal Exam: Deferred - Extremities Exam Extremities Exam: absent: Calf Tenderness, Pedal Edema - Back Exam Back Exam: absent: CVA tenderness (L), CVA tenderness (R) - Neurological Exam Neurological Exam: Alert, Awake, CN II-XII Intact, Oriented x3 - Psychiatric Exam Psychiatric exam: Normal Mood - Skin Skin Exam: absent: Rash Assessment and Plan (1) Pneumonia Status: Acute - Assessment and Plan (Free Text) Assessment: RESP STATUS COMFORTABLE. CONT PULM TOILET., NEB BD,. STEROID TAPER. AFEBRILE ON AB., +MYCOPLASMA PNA. INCREASE OOB. DISCUSSED WITH STAFF AT LENGTH.
--- NOTE | 2018-04-21 14:45 | CP.PCM.PN ---
Subjective - Date & Time of Evaluation Date of Evaluation: 04/21/18 Time of Evaluation: 14:45 - Subjective Subjective: AFEBRILE, NO NEW COMPLAINTS CLINICALLY IMPROVING. LABS REVIEWED; INFLUENZA A/B AB 1:8 TITRE +VE CXR REPEAT NOTED. Objective - Vital Signs/Intake and Output Vital Signs (last 24 hours): Temp Pulse Resp BP Pulse Ox 97.9 F 86 20 100/61 97 04/21/18 07:00 04/21/18 07:00 04/21/18 07:00 04/21/18 07:00 04/21/18 07:00 - Medications Medications: Current Medications Albuterol/Ipratropium (Duoneb 3 Mg/0.5 Mg (3 Ml) Ud) 3 ml INH RQ6 BRIAN Last Admin: 04/21/18 08:20 Dose: Not Given Enoxaparin Sodium (Lovenox) 40 mg SC DAILY BRIAN Last Admin: 04/21/18 10:01 Dose: Not Given Ceftriaxone Sodium (Rocephin Iv 1 Gm Duplex) 50 mls @ 100 mls/hr IVPB DAILY BRIAN; Protocol Last Admin: 04/21/18 09:55 Dose: 100 mls/hr Azithromycin 500 mg/ Sodium (Chloride) 250 mls @ 250 mls/hr IVPB DAILY BRIAN; Protocol Last Admin: 04/21/18 10:58 Dose: 250 mls/hr Oseltamivir Phosphate (Tamiflu Cap) 75 mg PO BID BRIAN; Protocol Stop: 04/22/18 20:23 Last Admin: 04/21/18 09:55 Dose: 75 mg - Labs Labs: 04/20/18 06:23 04/20/18 06:24 - Constitutional Appears: No Acute Distress - Head Exam Head Exam: NORMAL INSPECTION - Eye Exam Eye Exam: EOMI, PERRL - ENT Exam ENT Exam: Normal Oropharynx - Neck Exam Neck Exam: Normal Inspection. absent: Meningismus - Respiratory Exam Respiratory Exam: Rhonchi (RT SIDE), NORMAL BREATHING PATTERN - Cardiovascular Exam Cardiovascular Exam: REGULAR RHYTHM, +S1, +S2 - GI/Abdominal Exam GI & Abdominal Exam: Soft, Normal Bowel Sounds - Extremities Exam Extremities Exam: Normal Capillary Refill. absent: Calf Tenderness, Pedal Edema - Neurological Exam Neurological Exam: Alert, Awake, CN II-XII Intact, Oriented x3, Reflexes Normal - Psychiatric Exam Psychiatric exam: Normal Mood - Skin Skin Exam: Normal Color, Warm Assessment and Plan (1) CAP (community acquired pneumonia) Assessment & Plan: CONTINUE IV ABX AND PO TAMIFLUE. PULMONARY TOILET . Status: Acute (2) Influenza Assessment & Plan: ON PO TAMIFLUE 75MG PO BID LFTS IMPROVING. Status: Acute (3) Dyspnea Status: Acute (4) Fever and chills Status: Acute
--- NOTE | 2018-04-21 20:11 | CP.PCM.PN ---
Subjective - Date & Time of Evaluation Date of Evaluation: 04/21/18 Time of Evaluation: 10:00 - Subjective Subjective: clinically same Objective - Vital Signs/Intake and Output Vital Signs (last 24 hours): Temp Pulse Resp BP Pulse Ox 97.9 F 112 H 20 91/57 L 98 04/21/18 16:07 04/21/18 16:07 04/21/18 16:07 04/21/18 16:07 04/21/18 16:07 - Medications Medications: Current Medications Albuterol/Ipratropium (Duoneb 3 Mg/0.5 Mg (3 Ml) Ud) 3 ml INH RQ6 BRIAN Last Admin: 04/21/18 19:28 Dose: Not Given Enoxaparin Sodium (Lovenox) 40 mg SC DAILY BRIAN Last Admin: 04/21/18 10:01 Dose: Not Given Ceftriaxone Sodium (Rocephin Iv 1 Gm Duplex) 50 mls @ 100 mls/hr IVPB DAILY BRIAN; Protocol Last Admin: 04/21/18 09:55 Dose: 100 mls/hr Azithromycin 500 mg/ Sodium (Chloride) 250 mls @ 250 mls/hr IVPB DAILY BRIAN; Protocol Last Admin: 04/21/18 10:58 Dose: 250 mls/hr Oseltamivir Phosphate (Tamiflu Cap) 75 mg PO BID BRIAN; Protocol Stop: 04/22/18 20:23 Last Admin: 04/21/18 17:41 Dose: 75 mg - Labs Labs: 04/20/18 06:23 04/20/18 06:24 - Constitutional Appears: Well - Head Exam Head Exam: ATRAUMATIC, NORMAL INSPECTION, NORMOCEPHALIC - Eye Exam Eye Exam: EOMI, Normal appearance, PERRL Pupil Exam: NORMAL ACCOMODATION, PERRL - ENT Exam ENT Exam: Mucous Membranes Moist, Normal Exam - Neck Exam Neck Exam: Full ROM, Normal Inspection. absent: Lymphadenopathy - Respiratory Exam Respiratory Exam: Decreased Breath Sounds - Cardiovascular Exam Cardiovascular Exam: REGULAR RHYTHM, +S1, +S2 - GI/Abdominal Exam GI & Abdominal Exam: Soft, Diminished Bowel Sounds - Rectal Exam Rectal Exam: Deferred
[2018-04-22] MEDS: Albuterol-Ipratrop 3 mg / 0.5 (3 ml) UD INH SCH ×4 (01:15→19:36)
[2018-04-22] MEDS: Azithromycin 500 MG in Sodium Chloride 0.9% 250 ML IVPB SCH (10:00)
[2018-04-22] MEDS: Enoxaparin 40 mg Syringe SC SCH (10:00)
[2018-04-22] MEDS: cefTRIAXone IV 1 gm in Dextros 50 ML IVPB SCH (10:57)
--- NOTE | 2018-04-22 13:11 | CP.PCM.PN ---
Subjective - Date & Time of Evaluation Date of Evaluation: 04/22/18 Time of Evaluation: 11:15 - Subjective Subjective: clinically same Objective - Vital Signs/Intake and Output Vital Signs (last 24 hours): Temp Pulse Resp BP Pulse Ox 98.4 F 89 20 90/67 L 97 04/22/18 07:00 04/22/18 07:00 04/22/18 07:00 04/22/18 07:00 04/22/18 07:00 - Medications Medications: Current Medications Albuterol/Ipratropium (Duoneb 3 Mg/0.5 Mg (3 Ml) Ud) 3 ml INH RQ6 BRIAN Last Admin: 04/22/18 01:15 Dose: Not Given Enoxaparin Sodium (Lovenox) 40 mg SC DAILY BRIAN Last Admin: 04/22/18 10:00 Dose: Not Given Ceftriaxone Sodium (Rocephin Iv 1 Gm Duplex) 50 mls @ 100 mls/hr IVPB DAILY BRIAN; Protocol Last Admin: 04/22/18 10:57 Dose: 100 mls/hr Azithromycin 500 mg/ Sodium (Chloride) 250 mls @ 250 mls/hr IVPB DAILY BRIAN; Protocol Last Admin: 04/22/18 10:00 Dose: Not Given Oseltamivir Phosphate (Tamiflu Cap) 75 mg PO BID BRIAN; Protocol Stop: 04/22/18 20:23 Last Admin: 04/22/18 10:57 Dose: 75 mg - Labs Labs: 04/20/18 06:23 04/20/18 06:24 - Constitutional Appears: Well - Head Exam Head Exam: ATRAUMATIC, NORMAL INSPECTION, NORMOCEPHALIC - Eye Exam Eye Exam: EOMI, Normal appearance, PERRL Pupil Exam: NORMAL ACCOMODATION, PERRL - ENT Exam ENT Exam: Mucous Membranes Moist, Normal Exam - Neck Exam Neck Exam: Full ROM, Normal Inspection. absent: Lymphadenopathy - Respiratory Exam Respiratory Exam: Decreased Breath Sounds - Cardiovascular Exam Cardiovascular Exam: REGULAR RHYTHM, +S1, +S2 - GI/Abdominal Exam GI & Abdominal Exam: Soft, Diminished Bowel Sounds - Rectal Exam Rectal Exam: Deferred
--- NOTE | 2018-04-22 16:35 | CP.PCM.PN ---
Subjective - Date & Time of Evaluation Date of Evaluation: 04/22/18 Time of Evaluation: 16:30 - Subjective Subjective: PT ALERT, OOB, FEELS BETTER., LESS COUGH. ROS; OTHERWISE NEG. Objective - Vital Signs/Intake and Output Vital Signs (last 24 hours): Temp Pulse Resp BP Pulse Ox 98.4 F 89 20 90/67 L 97 04/22/18 07:00 04/22/18 07:00 04/22/18 07:00 04/22/18 07:00 04/22/18 07:00 - Medications Medications: Current Medications Albuterol/Ipratropium (Duoneb 3 Mg/0.5 Mg (3 Ml) Ud) 3 ml INH RQ6 BRIAN Last Admin: 04/22/18 13:40 Dose: 3 ml Enoxaparin Sodium (Lovenox) 40 mg SC DAILY BRIAN Last Admin: 04/22/18 10:00 Dose: Not Given Ceftriaxone Sodium (Rocephin Iv 1 Gm Duplex) 50 mls @ 100 mls/hr IVPB DAILY BRIAN; Protocol Last Admin: 04/22/18 10:57 Dose: 100 mls/hr Azithromycin 500 mg/ Sodium (Chloride) 250 mls @ 250 mls/hr IVPB DAILY BRIAN; Protocol Last Admin: 04/22/18 10:00 Dose: Not Given Oseltamivir Phosphate (Tamiflu Cap) 75 mg PO BID BRIAN; Protocol Stop: 04/22/18 20:23 Last Admin: 04/22/18 10:57 Dose: 75 mg - Labs Labs: 04/20/18 06:23 04/20/18 06:24 - Constitutional Appears: Non-toxic, No Acute Distress - Head Exam Head Exam: ATRAUMATIC, NORMOCEPHALIC - Eye Exam Eye Exam: EOMI, Normal appearance - ENT Exam ENT Exam: Mucous Membranes Moist - Neck Exam Neck Exam: Normal Inspection - Respiratory Exam Respiratory Exam: absent: Wheezes, Respiratory Distress - Cardiovascular Exam Cardiovascular Exam: RRR, +S1, +S2 - GI/Abdominal Exam GI & Abdominal Exam: Soft. absent: Tenderness - Rectal Exam Rectal Exam: Deferred - Extremities Exam Extremities Exam: absent: Calf Tenderness, Pedal Edema - Back Exam Back Exam: absent: CVA tenderness (L), CVA tenderness (R) - Neurological Exam Neurological Exam: Alert, Awake, CN II-XII Intact - Psychiatric Exam Psychiatric exam: Normal Mood - Skin Skin Exam: absent: Rash Assessment and Plan (1) Pneumonia Status: Acute - Assessment and Plan (Free Text) Assessment: RESP STATUS COMFORTABLE. CONT PULM TOILET. ADEQ OXYGENATION; CONT AB AND TAMIFLU PER ID. CXR REVIEWED. DISCUSSED WITH STAFF.
[2018-04-23] MEDS: Albuterol-Ipratrop 3 mg / 0.5 (3 ml) UD INH SCH (01:34)
[2018-04-23 08:30] VITALS: TEMP 98.1
[2018-04-23] MEDS: Enoxaparin 40 mg Syringe SC SCH (10:06)
[2018-04-23] MEDS: cefTRIAXone IV 1 gm in Dextros 50 ML IVPB SCH (10:06)
[2018-04-23] MEDS: Azithromycin 500 MG in Sodium Chloride 0.9% 250 ML IVPB SCH (10:07)
--- NOTE | 2018-04-23 13:44 | CP.PCM.PN ---
Subjective - Date & Time of Evaluation Date of Evaluation: 04/23/18 Time of Evaluation: 13:44 - Subjective Subjective: AFEBRILE, NO NEW COMPLAINTS CLINICALLY IMPROVING.ANXIOUS TO GO HOME. Objective - Vital Signs/Intake and Output Vital Signs (last 24 hours): Temp Pulse Resp BP Pulse Ox 98.1 F 93 H 20 99/59 L 99 04/23/18 07:00 04/23/18 07:00 04/23/18 07:00 04/23/18 07:00 04/23/18 07:00 - Medications Medications: Current Medications Enoxaparin Sodium (Lovenox) 40 mg SC DAILY BRIAN Last Admin: 04/23/18 10:06 Dose: Not Given - Labs Labs: 04/20/18 06:23 04/20/18 06:24 - Constitutional Appears: No Acute Distress - Head Exam Head Exam: NORMAL INSPECTION - Eye Exam Eye Exam: EOMI, PERRL - ENT Exam ENT Exam: Normal Oropharynx - Respiratory Exam Respiratory Exam: Rhonchi (RT SIDE) - Cardiovascular Exam Cardiovascular Exam: REGULAR RHYTHM, +S1, +S2 - GI/Abdominal Exam GI & Abdominal Exam: Soft, Normal Bowel Sounds - Extremities Exam Extremities Exam: absent: Calf Tenderness, Pedal Edema - Neurological Exam Neurological Exam: Alert, Awake, CN II-XII Intact, Normal Gait, Oriented x3, Reflexes Normal - Psychiatric Exam Psychiatric exam: Normal Mood - Skin Skin Exam: Normal Color, Warm Assessment and Plan (1) CAP (community acquired pneumonia) Status: Acute (2) Influenza Status: Acute (3) Dyspnea Status: Acute (4) Fever and chills Status: Acute - Assessment and Plan (Free Text) Plan: PER PMD PT FOR DC TODAY WILL BE F/ UP BY PMD IN 1WEEK.
--- NOTE | 2018-04-23 14:28 | CP.PCM.PN ---
Subjective - Date & Time of Evaluation Date of Evaluation: 04/23/18 Time of Evaluation: 11:00 - Subjective Subjective: clinically same Objective - Vital Signs/Intake and Output Vital Signs (last 24 hours): Temp Pulse Resp BP Pulse Ox 98.1 F 93 H 20 99/59 L 99 04/23/18 07:00 04/23/18 07:00 04/23/18 07:00 04/23/18 07:00 04/23/18 07:00 - Medications Medications: Current Medications Enoxaparin Sodium (Lovenox) 40 mg SC DAILY BRIAN Last Admin: 04/23/18 10:06 Dose: Not Given - Labs Labs: 04/20/18 06:23 04/20/18 06:24
[2018-04-23 15:56] VITALS: BP 100/65; PULSE 94; O2SAT 98
--- NOTE | 2018-04-23 18:10 | CP.PCM.PN ---
Subjective - Date & Time of Evaluation Date of Evaluation: 04/23/18 Time of Evaluation: 11:00 - Subjective Subjective: ALERT, ORIENTED, DENIES COUGH OR CONGESTION. Objective - Vital Signs/Intake and Output Vital Signs (last 24 hours): Temp Pulse Resp BP Pulse Ox 98.1 F 94 H 20 100/65 98 04/23/18 15:55 04/23/18 15:55 04/23/18 15:55 04/23/18 15:55 04/23/18 15:55 Intake and Output: 04/23/18 04/23/18 06:59 18:59 Intake Total 300 Balance 300 - Labs Labs: 04/20/18 06:23 04/20/18 06:24 Assessment and Plan - Assessment and Plan (Free Text) Assessment: 18 year old female admitted with fever, pneumonia, seen and examined. Denies sob or chest pains. Cleared by DR Brian Hwang, plan to discharge home on oral antibiotics. Advised to follow up in the office in 1 week. Plan: alert, oriented, no cough or distress, NAD.
== END 2018-04-23 16:20 | disposition home or self-care (01) | DRG 90 ==
LOC: C.ER 16:53 → C.9E 18:19 → C.6T 04-18 17:33
PROVIDERS: ADMIT Internal Medicine Nephrology; ATTEND Internal Medicine Nephrology
DX: J11.08 Influenza due to unidentified influenza virus with specified pneumonia (principal); J15.7 Pneumonia due to Mycoplasma pneumoniae; J45.909 Unspecified asthma, uncomplicated